=== PATIENT | female | born 1980 | race Caucasian/White ===

== ENCOUNTER 2017-05-26 05:20 | Emergency (ER) | payer OTHER ==
[2017-05-26 05:39] VITALS: O2SAT 97
[2017-05-26 05:45] VITALS: BP 137/89; PULSE 130; RESP 16; TEMP 99.5
--- NOTE | 2017-05-26 05:46 | EDPHY ---
H & P Stated Complaint: ST HPI/ROS: Chief Complaint: Sore throat HPI: 37-year-old woman presenting with sore throat that began last night. It hurts to swallow but she is able swallow. She has also had some fevers and chills. She has history of similar episode a year ago. She is positive for strep at that point and was started on penicillin. The infection not improve and ultimately she was found have a peritonsillar abscess that required incision and drainage. She does not feel that she is at that point today. She states that she has had recurrent strep such as a child and seems like penicillin is not affective in treating the his infections ROS: 10 point Review of Systems is negative except as noted in the HPI. PMH: Recurrent strep throat Social History: Denies smoking Family History: non-contributory Physical Exam: Gen: Awake, Alert, No Distress HEENT: Nose: no rhinorrhea Eyes: PERRLA, EOMI Mouth: Moist mucosa oropharynx is diffuse mild erythema without exudate. There is no asymmetrical swelling. Uvula is midline. There is no significant edema. Neck: Supple, no JVD, no lymphadenopathy Chest: nontender, lungs clear to auscultation Heart: S1, S2 normal, no murmur Abd: Soft, non-tender, no guarding Back: no CVA tenderness, no midline tenderness Ext: no edema, non-tender Skin: no rash Neuro: CN II-XII intact, Sensation grossly intact, Strength 5/5 in bilateral upper and lower extremities - Personal History LMP (Females 10-55): Unknown Current Tetanus/Diphtheria Vaccine: Yes - Medical/Surgical History Hx Asthma: No Hx Chronic Respiratory Disease: No Hx Diabetes: No Hx Cardiac Disease: No Hx Renal Disease: No Hx Cirrhosis: No Hx Alcoholism: No Hx HIV/AIDS: No Hx Splenectomy or Spleen Trauma: No Other PMH: Pcos, insulin resistance. hypothyroid - Social History Smoking Status: Former smoker Constitutional: Initial Vital Signs Temperature (C) 37.2 C 05/26/17 05:36 Heart Rate 128 H 05/26/17 05:36 Respiratory Rate 20 05/26/17 05:36 Blood Pressure 128/84 H 05/26/17 05:36 O2 Sat (%) 97 05/26/17 05:36 O2 Delivery Mode Room Air Allergies/Adverse Reactions: No Known Allergies Allergy (Verified 05/26/17 05:33) Home Medications: Medication Instructions Recorded Clindamycin HCl [Clindamycin] 300 mg PO QID 10 Days mg 05/26/17 FLUOXETINE HCL 05/26/17 MIRENA 05/26/17 Medical Decision Making ED Course/Re-evaluation: 37-year-old woman with history of recurrent strep throat and peritonsillar abscess in the past. She has had multiple treatments with penicillin that of any effective. For this reason but start her on clindamycin today. Will give her oral dose here and prescription for the same. She will follow up with her physician in 2-3 days. She will return for any concerns. - Data Points Laboratory Results: 05/26/17 05:32 Group A Strep Screen POSITIVE H (NEGATIVE) Departure - Departure Disposition: Home, Routine, Self-Care Clinical Impression: Acute pharyngitis Condition: Good Instructions: Strep Throat (ED) Referrals: Patient,NotPresent [Primary Care Provider] - As per Instructions Prescriptions: Clindamycin HCl [Clindamycin] 300 mg PO QID 10 Days mg
[2017-05-26] MEDS ORDERED: CLINDAMYCIN 150 MG CAP PO ONE (05:54)
== END 2017-05-26 06:02 | disposition home or self-care (01) ==
LOC: CED 05:20
DX: J02.9 Acute pharyngitis, unspecified (principal); Z87.891 Personal history of nicotine dependence
CPT/HCPCS: 87880-PO